=== PATIENT | male | born 1960 | race Hispanic/Latino ===

== ENCOUNTER 2025-03-03 08:00 | Day surgery (SDC) | payer OTHER ==
[~2025-03-03] VITALS: Ht 175.3 cm; Wt 84.8 kg
[2025-03-03] VITALS (10 sets, daily range): BP systolic 102–124; BP diastolic 64–86; PULSE 62–77; RESP 15–18; TEMP 97.5–97.8
[~2025-03-03 08:00] MED LIST: 0.9%NACL 1000ML 1,000 ML IV ONE
[2025-03-03] MEDS: 0.9%NACL 1000ML 1,000 ML IV ONE (09:15)
== END 2025-03-03 11:32 | disposition home or self-care (01) ==
LOC: DAH 08:00
PROVIDERS: ATTEND Internal Medicine Gastroenterology
DX: K83.1 Obstruction of bile duct (principal); K86.89 Other specified diseases of pancreas; K92.9 Disease of digestive system, unspecified; R17 Unspecified jaundice; R93.3 Abnormal findings on diagnostic imaging of other parts of digestive tract; R93.2 Abnormal findings on diagnostic imaging of liver and biliary tract; Z90.49 Acquired absence of other specified parts of digestive tract; Z98.890 Other specified postprocedural states; Z85.05 Personal history of malignant neoplasm of liver; Z85.028 Personal history of other malignant neoplasm of stomach
CPT/HCPCS: 43242; J7030; J2704; A4620; A4215 ×2; J3490